=== PATIENT | male | born 1950 | race Caucasian/White ===

== ENCOUNTER 2017-04-25 13:18 | Emergency (ER) | payer MEDICARE ==
[~2017-04-25] VITALS: Ht 180.3 cm; Wt 78.8 kg
[~2017-04-25 13:18] MED LIST: TRAZ100T15 PO; ZOLP10TA PO
[2017-04-25] MEDS ORDERED: SODIUM CHLORIDE FLUSH 10ML SYR IVF ONE (14:30)
[2017-04-25] MEDS ORDERED: HYDR-3307 PO (14:31)
[2017-04-25 14:46] LABS: ASPARTATE AMINO TRANSFERASE 25 U/L (15-37); BLOOD UREA NITROGEN 22 mg/dL (7-18)
[2017-04-25] MEDS ORDERED: OMNIPAQUE 350 MG/ML, 100ML BOTTLE ONE (15:27)
[2017-04-25] MEDS ORDERED: FENTANYL PF 100 MCG/2ML ONE (16:21)
[2017-04-25] MEDS ORDERED: MIDAZOLAM 1 MG/ML, 5ML ONE (16:21)
[2017-04-25 17:39] VITALS: BP 133/87
== END 2017-04-25 17:41 | disposition home or self-care (01) ==
LOC: ED 15:53
DX: T18.5XXA Foreign body in anus and rectum, initial encounter (principal); N18.9 Chronic kidney disease, unspecified; X58.XXXA Exposure to other specified factors, initial encounter; Y93.89 Activity, other specified; Y92.89 Other specified places as the place of occurrence of the external cause; Y99.9 Unspecified external cause status
CPT/HCPCS: 36415; 45332; 74177; 80053; 85025; 85610; 85730; 99285; Q9967; J2250; J3010

== ENCOUNTER 2017-09-03 18:25 | Emergency (ER) | payer MEDICARE ==
[~2017-09-03] VITALS: Ht 180.3 cm; Wt 80.0 kg
[~2017-09-03 18:25] MED LIST changes: +HYDR-3307 PO
[2017-09-03] MEDS ORDERED: SODIUM CHLORIDE 0.9% 1,000 ML IV ONE (18:39)
[2017-09-03] MEDS ORDERED: AMPICILLIN/SULBACTAM 3 GM in SODIUM CHLORIDE 0.9% 100 ML IVPB ONE (19:00)
[2017-09-03] MEDS ORDERED: SODIUM CHLORIDE FLUSH 10ML SYR IVF ONE (19:00)
[2017-09-03 19:09] LABS: HEMATOCRIT 40.5 % (39.2-51.8); HEMOGLOBIN 13.6 g/dL (13.7-18.0)
[2017-09-03 19:20] LABS: ASPARTATE AMINO TRANSFERASE 51 U/L (15-37); BLOOD UREA NITROGEN 23 mg/dL (7-18)
[2017-09-03 20:30] VITALS: BP 134/97
== END 2017-09-03 20:32 | disposition home or self-care (01) ==
LOC: ED 20:00
DX: L03.115 Cellulitis of right lower limb (principal); F31.9 Bipolar disorder, unspecified; F43.10 Post-traumatic stress disorder, unspecified; N18.9 Chronic kidney disease, unspecified
CPT/HCPCS: 36415; 73502; 73590; 73610; 80053; 80307; 83605; 85025; 85651; 87040; 93971; 96365; 96366; 99285; J0295; J7030; G0479

== ENCOUNTER 2017-10-17 03:39 | Emergency (ER) | payer MEDICARE ==
[~2017-10-17] VITALS: Ht 170.2 cm; Wt 80.0 kg
[2017-10-17] MEDS ORDERED: GABA600T2 PO (03:53)
[2017-10-17 04:19] VITALS: BP 158/96
== END 2017-10-17 04:20 | disposition home or self-care (01) ==
LOC: ED 04:14
DX: K40.90 Unilateral inguinal hernia, without obstruction or gangrene, not specified as recurrent (principal); F31.9 Bipolar disorder, unspecified; N18.9 Chronic kidney disease, unspecified
CPT/HCPCS: 99283

== ENCOUNTER 2017-11-01 20:02 | Emergency (ER) | payer MEDICARE ==
[~2017-11-01] VITALS: Ht 180.3 cm; Wt 84.7 kg
[~2017-11-01 20:02] MED LIST changes: +GABA600T2 PO
[2017-11-01] MEDS ORDERED: SODIUM CHLORIDE FLUSH 10ML SYR IVF ONE ×2 (21:00→22:00)
[2017-11-01 21:18] LABS: HEMOGLOBIN 13.9 g/dL (13.7-18.0); WHITE BLOOD COUNT 6.8 x10^3/uL (3.4-10)
[2017-11-01 21:28] LABS: BLOOD UREA NITROGEN 26 mg/dL (7-18)
[2017-11-01] MEDS ORDERED: LISI-167 PO (21:35)
[2017-11-01 21:44] LABS: PATH.CAST-FLAG NOT PRESENT; SPERM-FLAG NOT PRESENT; SRC-FLAG NOT PRESENT; XTAL-FLAG NOT PRESENT; YLC-FLAG NOT PRESENT
[2017-11-01] MEDS ORDERED: ONDANSETRON 2MG/ML, 2ML ONE (21:44)
[2017-11-01] MEDS ORDERED: MORPHINE SULFATE 4 MG/ML, 1ML ONE (21:44)
[2017-11-01] MEDS ORDERED: MORPHINE SULFATE 4 MG/ML, 1ML IVPush PRN (22:00)
[2017-11-01] MEDS ORDERED: ONDANSETRON 2MG/ML, 2ML IVPush ONE (22:00)
[2017-11-01 23:39] VITALS: BP 161/92
== END 2017-11-02 00:06 | disposition home or self-care (01) ==
LOC: ED 20:52
DX: K40.91 Unilateral inguinal hernia, without obstruction or gangrene, recurrent (principal); N18.9 Chronic kidney disease, unspecified
CPT/HCPCS: 36415; 76857; 80048; 81001; 82040; 85025; 96374; 96375; 99285; J2405

== ENCOUNTER 2017-11-04 18:12 | Emergency (ER) | payer MEDICARE ==
[~2017-11-04] VITALS: Ht 180.3 cm; Wt 84.0 kg
[~2017-11-04 18:12] MED LIST changes: +LISI-167 PO
[2017-11-04] MEDS ORDERED: HYDROcodone/APAP 5/325 TABLET ONE (18:52)
[2017-11-04] MEDS ORDERED: HYDROcodone/APAP 5/325 TABLET PO ONE (19:00)
[2017-11-04] MEDS ORDERED: HYDROmorphone 1 MG/ML, 1ML IM ONE (19:00)
[2017-11-04 20:27] VITALS: BP 135/86
== END 2017-11-04 20:29 | disposition home or self-care (01) ==
LOC: ED 18:42
DX: K40.90 Unilateral inguinal hernia, without obstruction or gangrene, not specified as recurrent (principal); F43.10 Post-traumatic stress disorder, unspecified; N18.9 Chronic kidney disease, unspecified
CPT/HCPCS: 99283

== ENCOUNTER 2017-12-09 20:38 | Emergency (ER) | payer MEDICARE ==
[~2017-12-09] VITALS: Ht 180.3 cm; Wt 84.5 kg
[~2017-12-09 20:38] MED LIST changes: +GABA100C PO; +HYDR-882 PO; +IBUP-1223 PO
[2017-12-09 22:37] VITALS: BP 146/92
[2017-12-09 22:59] LABS: ANION GAP 9 mmol/L (5-15); CALCIUM 7.9 mg/dL (8.5-10.1); CHLORIDE 112 mmol/L (98-107)
[2017-12-09 23:01] LABS: BASOPHILS # (AUTO) 0.03 x10^3/uL (0-0.1); BASOPHILS % (AUTO) 0 % (0-1); EOSINOPHILS # (AUTO) 0.23 x10^3/uL (0-0.4); EOSINOPHILS % (AUTO) 3 % (1-7); LYMPHOCYTES # (AUTO) 2.42 x10^3/uL (1-3.4); LYMPHOCYTES % (AUTO) 28 % (22-44); MD NO; MEAN CORPUSCULAR HEMOGLOBIN 29.6 pg (27.5-34.5); MEAN CORPUSCULAR HGB CONC 33.3 g/dL (33.2-36.2); MEAN CORPUSCULAR VOLUME 88.8 fL (81-97); MONOCYTES # (AUTO) 0.74 x10^3/uL (0.2-0.8); MONOCYTES % (AUTO) 9 % (2-9); NEUTROPHILS % (AUTO) 60 % (42-75); PLATELET COUNT 240 x10^3/uL (130-400); RED BLOOD COUNT 4.47 x10^6/uL (4.38-5.82); RED CELL DISTRIBUTION WIDTH 14.2 % (9.4-14.8)
== END 2017-12-09 23:31 | disposition home or self-care (01) ==
LOC: ED 21:40
DX: R10.31 Right lower quadrant pain (principal); I12.9 Hypertensive chronic kidney disease with stage 1 through stage 4 chronic kidney disease, or unspecified chronic kidney disease; N18.9 Chronic kidney disease, unspecified; F43.10 Post-traumatic stress disorder, unspecified
CPT/HCPCS: 36415; 76857; 80048; 85025; 99285

== ENCOUNTER 2018-03-14 02:21 | Inpatient (IN) | payer MEDICARE ==
[~2018-03-14] VITALS: Ht 180.3 cm; Wt 79.6 kg
[2018-03-14] MEDS ORDERED: PIPERACILLIN/TAZO/PMX 3.375GM 50 ML IVPB ONE (02:30)
[2018-03-14] MEDS ORDERED: VANCOMYCIN PER PHARMACY IV ONE (02:30)
[2018-03-14] MEDS ORDERED: SODIUM CHLORIDE 0.9% 1,000ML IVBOLUS ONE ×2 (02:30→03:30)
[2018-03-14] MEDS ORDERED: ONDANSETRON ODT 4 MG PO ONE (02:30)
[2018-03-14] MEDS ORDERED: MORPHINE SULFATE 4 MG/ML, 1ML IVPush PRN (02:30)
[2018-03-14] MEDS ORDERED: ONDANSETRON ODT 4 MG ONE (02:54)
[2018-03-14] MEDS ORDERED: MORPHINE SULFATE 4 MG/ML, 1ML ONE (02:55)
[2018-03-14] MEDS ORDERED: PIPERACILLIN/TAZO/PMX 3.375GM 50 ML ONE (02:55)
[2018-03-14] MEDS ORDERED: VANCOMYCIN 1,200 MG in SODIUM CHLORIDE 0.9% 250 ML IV ONE (03:00)
[2018-03-14] MEDS ORDERED: ACETAMINOPHEN 500 MG TABLET ONE (03:04)
[2018-03-14 03:11] LABS: MEAN CORPUSCULAR HEMOGLOBIN 30.1 pg (27.5-34.5); MEAN CORPUSCULAR HGB CONC 33.4 g/dL (33.2-36.2); PLATELET COUNT 218 x10^3/uL (130-400); RED BLOOD COUNT 4.69 x10^6/uL (4.38-5.82); RED CELL DISTRIBUTION WIDTH 13.8 % (9.4-14.8)
[2018-03-14 03:13] LABS: ALANINE AMINOTRANSFERASE 53 U/L (12-78); ALBUMIN 3.4 g/dL (3.4-5.0); ANION GAP 11 mmol/L (5-15); CALCIUM 8.5 mg/dL (8.5-10.1); CHLORIDE 99 mmol/L (98-107); CREATININE 1.37 mg/dL (0.7-1.3)
[2018-03-14 03:16] LABS: ALKALINE PHOSPHATASE 103 U/L (45-117); BILIRUBIN,TOTAL 0.9 mg/dL (0.2-1.0); TOTAL PROTEIN 7.7 g/dL (6.4-8.2)
[2018-03-14] MEDS ORDERED: ACETAMINOPHEN 500 MG TABLET PO ONE (03:30)
[2018-03-14 03:34] LABS: MD YES
[2018-03-14 03:39] LABS: BAND#(MANUAL) 0.22 x10^3/uL; BANDS%(MANUAL) 1 % (0-7); LYMPH#(MANUAL) 0.65 x10^3/uL (1-3.4); LYMPHS% (MANUAL) 3 % (22-44); MONOS#(MANUAL) 1.73 x10^3/uL (0.3-2.7); MONOS% (MANUAL) 8 % (2-9); SEG#(MANUAL) 19.01 x10^3/uL (1.8-6.8); SEGS% (MANUAL) 88 % (42-75)
[2018-03-14 03:40] LABS: <PLATELET ESTIMATE> ADEQUATE; <RBC MORPHOLOGY> NORMAL; LARGE PLATELETS 1+
[2018-03-14] MEDS ORDERED: PROPOFOL 10 MG/ML, 20ML ONE (03:45)
[2018-03-14] MEDS ORDERED: PROPOFOL 10 MG/ML, 20ML IVPush ONE (04:00)
[2018-03-14] MEDS ORDERED: LIDOCAINE-MPF 1%, 5ML ONE (04:12)
[2018-03-14] MEDS ORDERED: LABETALOL 5MG/ML, 20ML IVPush PRN (05:00)
[2018-03-14] MEDS ORDERED: hydrALAzine 20 MG/ML, 1ML IV PRN (05:00)
[2018-03-14] MEDS ORDERED: POLYETHYLENE GLYCOL 17 GM PACKET PO PRN (05:00)
[2018-03-14] MEDS ORDERED: VANCOMYCIN PER PHARMACY MC PRN (05:00)
[2018-03-14] MEDS ORDERED: ACETAMINOPHEN 325 MG TABLET PO PRN (05:00)
[2018-03-14] MEDS ORDERED: ONDANSETRON 2MG/ML, 2ML IVPush PRN (05:00)
[2018-03-14] MEDS ORDERED: DOCUSATE 100 MG CAPSULE PO PRN (05:00)
[2018-03-14 05:30] VITALS: BP 123/76
[2018-03-14] MEDS ORDERED: PHARMACOKINETIC MONITORING MC PRN (06:00)
[2018-03-14] MEDS: SODIUM CHLORIDE 0.9% 1,000 ML IV SCH ×2 (06:07→14:37)
[2018-03-14] MEDS: ENOXAPARIN 40 MG/0.4 ML SQ SCH (06:19)
[2018-03-14] MEDS: GABAPENTIN 100 MG CAPSULE PO SCH ×4 (06:19→21:14)
[2018-03-14 07:39] VITALS: BP 108/62
[2018-03-14 07:41] VITALS: BP 118/76
[2018-03-14] MEDS: SENNA/DOCUSATE TABLET PO SCH (08:59)
[2018-03-14] MEDS: PIPERACILLIN/TAZO/PMX 3.375GM 50 ML IV SCH ×2 (08:59→15:07)
[2018-03-14] MEDS: HYDROcodone/APAP 5/325 TABLET PO PRN ×2 (09:41→13:27)
[2018-03-14 14:00] VITALS: BP 121/71
[2018-03-14] MEDS: VANCOMYCIN 1,600 MG in SODIUM CHLORIDE 0.9% 250 ML IV SCH (16:59)
[2018-03-14 20:22] VITALS: BP 135/82
[2018-03-14] MEDS: TRAZODONE 100MG TABLET PO SCH (21:13)
[2018-03-15 02:01] VITALS: BP 113/74
[2018-03-15] MEDS: PIPERACILLIN/TAZO/PMX 3.375GM 50 ML IV SCH ×4 (02:35→22:02)
[2018-03-15 05:00] LABS: BASOPHILS # (AUTO) 0.03 x10^3/uL (0-0.1); BASOPHILS % (AUTO) 0 % (0-1); EOSINOPHILS # (AUTO) 0.22 x10^3/uL (0-0.4); EOSINOPHILS % (AUTO) 2 % (1-7); LYMPHOCYTES # (AUTO) 1.69 x10^3/uL (1-3.4); LYMPHOCYTES % (AUTO) 18 % (22-44); MD NO; MEAN CORPUSCULAR HEMOGLOBIN 31.1 pg (27.5-34.5); MEAN CORPUSCULAR HGB CONC 33.8 g/dL (33.2-36.2); MEAN CORPUSCULAR VOLUME 91.9 fL (81-97); MEAN PLATELET VOLUME 8.7 fL (7.4-10.4); MONOCYTES # (AUTO) 0.84 x10^3/uL (0.2-0.8); MONOCYTES % (AUTO) 9 % (2-9); NEUTROPHILS # (AUTO) 6.74 x10^3/uL (1.8-6.8); NEUTROPHILS % (AUTO) 71 % (42-75); PLATELET COUNT 194 x10^3/uL (130-400); RED BLOOD COUNT 3.96 x10^6/uL (4.38-5.82); RED CELL DISTRIBUTION WIDTH 13.9 % (9.4-14.8)
[2018-03-15 05:03] LABS: ANION GAP 6 mmol/L (5-15); CHLORIDE 110 mmol/L (98-107); CREATININE 1.13 mg/dL (0.7-1.3)
[2018-03-15] MEDS: ENOXAPARIN 40 MG/0.4 ML SQ SCH (05:53)
[2018-03-15 07:38] VITALS: BP 110/62
[2018-03-15] MEDS: GABAPENTIN 100 MG CAPSULE PO SCH ×3 (08:48→22:07)
[2018-03-15] MEDS: SENNA/DOCUSATE TABLET PO SCH (08:49)
[2018-03-15] MEDS: HYDROcodone/APAP 5/325 TABLET PO PRN ×2 (08:55→22:07)
[2018-03-15] MEDS: VANCOMYCIN 1,600 MG in SODIUM CHLORIDE 0.9% 250 ML IV SCH (11:08)
[2018-03-15] MEDS: morphine SULFATE 10 MG/ML, 1ML IVPush PRN (12:09)
[2018-03-15 13:24] VITALS: BP 141/87
[2018-03-15 19:07] VITALS: BP 132/81
[2018-03-15] MEDS: TRAZODONE 100MG TABLET PO SCH (22:07)
[2018-03-16 00:28] VITALS: BP 130/74
[2018-03-16] MEDS: PIPERACILLIN/TAZO/PMX 3.375GM 50 ML IV SCH ×4 (04:00→23:18)
[2018-03-16] MEDS: VANCOMYCIN 1,600 MG in SODIUM CHLORIDE 0.9% 250 ML IV SCH ×2 (05:09→23:56)
[2018-03-16] MEDS: ENOXAPARIN 40 MG/0.4 ML SQ SCH (05:09)
[2018-03-16 07:19] VITALS: BP 128/75
[2018-03-16] MEDS: GABAPENTIN 100 MG CAPSULE PO SCH ×3 (11:30→20:30)
[2018-03-16] MEDS: SENNA/DOCUSATE TABLET PO SCH (11:31)
[2018-03-16 13:12] VITALS: BP 146/87
[2018-03-16] MEDS: morphine SULFATE 10 MG/ML, 1ML IVPush PRN ×2 (15:59→20:30)
[2018-03-16] MEDS: TRAZODONE 100MG TABLET PO SCH (20:30)
[2018-03-16 20:36] VITALS: BP_SYST 160; BP_SYST 167; BP_DIAS 100; BP_DIAS 93
[2018-03-16] MEDS: HYDROcodone/APAP 5/325 TABLET PO PRN (23:18)
[2018-03-17 01:45] VITALS: BP 116/67
[2018-03-17] MEDS: ENOXAPARIN 40 MG/0.4 ML SQ SCH (04:48)
[2018-03-17] MEDS: PIPERACILLIN/TAZO/PMX 3.375GM 50 ML IV SCH ×4 (04:48→22:45)
[2018-03-17 07:53] VITALS: BP 136/84
[2018-03-17] MEDS: SENNA/DOCUSATE TABLET PO SCH (09:00)
[2018-03-17] MEDS: GABAPENTIN 100 MG CAPSULE PO SCH ×3 (09:01→20:06)
[2018-03-17 13:44] VITALS: BP 154/95
[2018-03-17] MEDS: HYDROcodone/APAP 5/325 TABLET PO PRN ×2 (14:11→20:06)
[2018-03-17] MEDS: VANCOMYCIN 1,600 MG in SODIUM CHLORIDE 0.9% 250 ML IV SCH (17:09)
[2018-03-17 19:23] VITALS: BP 162/94
[2018-03-17] MEDS: TRAZODONE 100MG TABLET PO SCH (20:06)
[2018-03-18 02:30] VITALS: BP 115/77
[2018-03-18] MEDS: PIPERACILLIN/TAZO/PMX 3.375GM 50 ML IV SCH ×2 (03:55→10:46)
[2018-03-18] MEDS: ENOXAPARIN 40 MG/0.4 ML SQ SCH (05:47)
[2018-03-18 08:25] VITALS: BP 126/87
[2018-03-18] MEDS: SENNA/DOCUSATE TABLET PO SCH (09:00)
[2018-03-18] MEDS: GABAPENTIN 100 MG CAPSULE PO SCH ×3 (10:46→20:29)
[2018-03-18] MEDS: VANCOMYCIN 1,600 MG in SODIUM CHLORIDE 0.9% 250 ML IV SCH (11:28)
[2018-03-18] MEDS: HYDROcodone/APAP 5/325 TABLET PO PRN (12:30)
[2018-03-18 13:46] VITALS: BP 149/93
[2018-03-18 18:42] VITALS: BP 162/99
[2018-03-18 20:05] VITALS: BP 179/103
[2018-03-18] MEDS: AMOXICILLIN/CLAV 875-125MG TABLET PO SCH (20:29)
[2018-03-18] MEDS: TRAZODONE 100MG TABLET PO SCH (20:29)
[2018-03-18] MEDS: DOXYCYCLINE 100MG TABLET PO SCH (20:29)
[2018-03-18 21:36] VITALS: BP 137/72
[2018-03-19 02:49] VITALS: BP 126/78
[2018-03-19] MEDS: HYDROcodone/APAP 5/325 TABLET PO PRN ×2 (05:07→08:58)
[2018-03-19] MEDS: ENOXAPARIN 40 MG/0.4 ML SQ SCH (05:07)
[2018-03-19 06:09] LABS: BASOPHILS # (AUTO) 0.03 x10^3/uL (0-0.1); BASOPHILS % (AUTO) 0 % (0-1); EOSINOPHILS # (AUTO) 0.31 x10^3/uL (0-0.4); EOSINOPHILS % (AUTO) 4 % (1-7); LYMPHOCYTES # (AUTO) 2.24 x10^3/uL (1-3.4); LYMPHOCYTES % (AUTO) 26 % (22-44); MD NO; MEAN CORPUSCULAR HEMOGLOBIN 30.2 pg (27.5-34.5); MEAN CORPUSCULAR HGB CONC 33.1 g/dL (33.2-36.2); MEAN CORPUSCULAR VOLUME 91.2 fL (81-97); MEAN PLATELET VOLUME 7.6 fL (7.4-10.4); MONOCYTES # (AUTO) 0.58 x10^3/uL (0.2-0.8); MONOCYTES % (AUTO) 7 % (2-9); NEUTROPHILS # (AUTO) 5.47 x10^3/uL (1.8-6.8); NEUTROPHILS % (AUTO) 63 % (42-75); PLATELET COUNT 330 x10^3/uL (130-400); RED BLOOD COUNT 4.55 x10^6/uL (4.38-5.82); RED CELL DISTRIBUTION WIDTH 14.4 % (9.4-14.8)
[2018-03-19 06:12] LABS: CHLORIDE 110 mmol/L (98-107)
[2018-03-19 06:22] LABS: ALANINE AMINOTRANSFERASE 37 U/L (12-78); ALBUMIN 2.7 g/dL (3.4-5.0); ALKALINE PHOSPHATASE 84 U/L (45-117); ANION GAP 7 mmol/L (5-15); BILIRUBIN,TOTAL 0.4 mg/dL (0.2-1.0); CALCIUM 8.5 mg/dL (8.5-10.1); CREATININE 1.32 mg/dL (0.7-1.3)
[2018-03-19 07:45] VITALS: BP 147/85
[2018-03-19] MEDS: AMOXICILLIN/CLAV 875-125MG TABLET PO SCH (08:59)
[2018-03-19] MEDS: GABAPENTIN 100 MG CAPSULE PO SCH (08:59)
[2018-03-19] MEDS: SENNA/DOCUSATE TABLET PO SCH (09:00)
[2018-03-19] MEDS: DOXYCYCLINE 100MG TABLET PO SCH (09:01)
[2018-03-19] MEDS ORDERED: DOXY100T PO (12:31)
[2018-03-19] MEDS ORDERED: AMOX1TAB12 PO (12:31)
[2018-03-19 13:27] VITALS: BP 137/77
[2018-03-19] MEDS ORDERED: PNEUMOCOCCAL 23 VACCINE IM-VACC ONE (17:00)
== END 2018-03-19 17:52 | disposition home or self-care (01) | DRG 853 ==
LOC: ED 03:39 → EDIP 04:39 → SUATTDRO 04:53 → 3NE 05:29
PROVIDERS: ADMIT Family Medicine; ATTEND Family Medicine
PROC: 0J9H0ZZ Drainage of Left Lower Arm Subcutaneous Tissue and Fascia, Open Approach (ICD-10-PCS; principal; 2018-03-14)
PROC: 0J9G0ZZ Drainage of Right Lower Arm Subcutaneous Tissue and Fascia, Open Approach (ICD-10-PCS; 2018-03-14)
DX: A41.9 Sepsis, unspecified organism (principal); N17.0 Acute kidney failure with tubular necrosis; E87.1 Hypo-osmolality and hyponatremia; L02.413 Cutaneous abscess of right upper limb; L02.414 Cutaneous abscess of left upper limb; L03.113 Cellulitis of right upper limb; F15.10 Other stimulant abuse, uncomplicated; B19.20 Unspecified viral hepatitis C without hepatic coma; F31.9 Bipolar disorder, unspecified; F43.10 Post-traumatic stress disorder, unspecified; I12.9 Hypertensive chronic kidney disease with stage 1 through stage 4 chronic kidney disease, or unspecified chronic kidney disease; N18.9 Chronic kidney disease, unspecified; Z59.0 Homelessness; Z66 Do not resuscitate; Z86.14 Personal history of Methicillin resistant Staphylococcus aureus infection; R65.20 Severe sepsis without septic shock
CPT/HCPCS: 10060; 36415; 71046; 80048; 80053; 80202; 83605; 83735; 84145; 85025; 87040; 96361; 96374; 96375; J1650; J2543; J3370; Q0162; J2270; J7030; J7050

== ENCOUNTER 2019-01-09 01:39 | Emergency (ER) | payer MEDICARE ==
[~2019-01-09] VITALS: Ht 180.3 cm; Wt 84.0 kg
[~2019-01-09 01:39] MED LIST changes: +AMOX1TAB12 PO; +DOXY100T PO; -GABA600T2 PO; +GABA600T7 PO; +HYDR-3653 PO; -HYDR-882 PO; +TRAZ-137 PO; -TRAZ100T15 PO
[2019-01-09 01:44] VITALS: BP 170/98
[2019-01-09] MEDS ORDERED: LIDOCAINE-MPF 1%, 5ML ONE (01:58)
== END 2019-01-09 02:23 | disposition home or self-care (01) ==
LOC: ED 02:16
DX: L02.416 Cutaneous abscess of left lower limb (principal); F31.9 Bipolar disorder, unspecified; Z86.19 Personal history of other infectious and parasitic diseases
CPT/HCPCS: 10060; 99283

== ENCOUNTER 2019-02-21 11:23 | Emergency (ER) | payer MEDICARE ==
[~2019-02-21] VITALS: Ht 180.3 cm; Wt 84.9 kg
--- NOTE | 2019-02-21 11:30 | NUR ---
NIL X 1
[2019-02-21 11:34] VITALS: BP 155/97
--- NOTE | 2019-02-21 13:08 | NUR ---
PATIENT LEFT AND SIGNED FORMED. PATIENT STATED AFTER BEING TRIAGED "WELL IF I WAS GOING TO HAVE A SEIZURE I WOULD HAVE ONE ALREADY"
== END 2019-02-21 13:15 | disposition left against medical advice (07) ==
LOC: ED 11:40
DX: R56.9 Unspecified convulsions (principal); F41.9 Anxiety disorder, unspecified; Z53.21 Procedure and treatment not carried out due to patient leaving prior to being seen by health care provider

== ENCOUNTER 2019-04-09 19:27 | Day surgery (SDC) | payer MEDICARE ==
[~2019-04-09] VITALS: Ht 180.3 cm; Wt 82.4 kg
[2019-04-09] MEDS ORDERED: LEVE100020 PO (19:52)
[2019-04-09] MEDS ORDERED: HYDR10TA4 PO (19:52)
[2019-04-09] MEDS ORDERED: CYAN10005 PO (19:52)
--- NOTE | 2019-04-09 19:53 | NUR ---
PT IN HOSPITAL GOWN. PT AT XRAY AT THIS TIME. PT STATED HE HAS A FLASHLIGHT WITH A CONDOM ON IT AND A TOOTHBRUSH IN HIS RECTUM, PLACED THERE BY HIM DURING A MASTERBATION SESSION WHILE HIGH ON METH. PT STATED LAST METH USE WAS SUNDAY.
[2019-04-09] MEDS ORDERED: SODIUM CHLORIDE FLUSH 10ML SYR IVF ONE (20:00)
[2019-04-09] MEDS ORDERED: MORPHINE SULFATE 4 MG/ML, 1ML IVPush PRN (20:00)
[2019-04-09 20:22] LABS: BASOPHILS # (AUTO) 0.03 x10^3/uL (0-0.1); BASOPHILS % (AUTO) 0 % (0-1); EOSINOPHILS # (AUTO) 0.46 x10^3/uL (0-0.4); EOSINOPHILS % (AUTO) 7 % (1-7); LYMPHOCYTES # (AUTO) 1.98 x10^3/uL (1-3.4); LYMPHOCYTES % (AUTO) 30 % (22-44); MD NO; MEAN CORPUSCULAR HEMOGLOBIN 30.6 pg (27.5-34.5); MEAN CORPUSCULAR HGB CONC 32.5 g/dL (33.2-36.2); MEAN CORPUSCULAR VOLUME 94.3 fL (81-97); MEAN PLATELET VOLUME 8.6 fL (7.4-10.4); MONOCYTES % (AUTO) 11 % (2-9); NEUTROPHILS # (AUTO) 3.43 x10^3/uL (1.8-6.8); NEUTROPHILS % (AUTO) 52 % (42-75); PLATELET COUNT 177 x10^3/uL (130-400); RED BLOOD COUNT 4.47 x10^6/uL (4.38-5.82)
[2019-04-09 20:26] LABS: ALBUMIN 3.5 g/dL (3.4-5.0); ANION GAP 7 mmol/L (5-15); CALCIUM 8.5 mg/dL (8.5-10.1); CHLORIDE 108 mmol/L (98-107); CREATININE 1.64 mg/dL (0.7-1.3)
[2019-04-09 20:41] VITALS: BP 129/86
[2019-04-09] MEDS ORDERED: MORPHINE SULFATE 4 MG/ML, 1ML ONE (20:43)
--- NOTE | 2019-04-09 21:07 | NUR ---
REPORT GIVEN TO CHASE FROM OR. PT HAS IV, MEDICTAED FOR PAIN PER EMAR.
[2019-04-09] MEDS ORDERED: BUPIVACAINE/PF 0.5% ONE (21:24)
[2019-04-09] MEDS ORDERED: EPINEPHRINE 1 MG/ML, 1ML ONE (21:24)
[2019-04-09] MEDS ORDERED: SILVER SULF. CRM 1% , 25GM ONE (21:24)
[2019-04-09] MEDS ORDERED: LIDOCAINE 4% CREAM 5GM TUBE ONE (21:34)
[2019-04-09] MEDS ORDERED: MIDAZOLAM 1 MG/ML, 2ML ONE (21:40)
[2019-04-09] MEDS ORDERED: FENTANYL PF 100 MCG/2ML ONE (21:40)
[2019-04-09] MEDS ORDERED: SUCCINYLCHOLINE 20 MG/ML, 10ML ONE (21:59)
[2019-04-09] MEDS ORDERED: PROPOFOL 10 MG/ML, 20ML ONE (21:59)
[2019-04-09] MEDS ORDERED: DEXAMETHASONE 4 MG/ML, 1ML ONE ×2 (21:59)
[2019-04-09] MEDS ORDERED: ONDANSETRON 2MG/ML, 2ML ONE (21:59)
[2019-04-09] MEDS ORDERED: MEPERIDINE/PF 25MG/0.5ML IVPush PRN (22:00)
[2019-04-09] MEDS ORDERED: DIAZEPAM 5 MG/ML, 2ML IVPush PRN (22:00)
[2019-04-09] MEDS ORDERED: OXYcodone 5 MG/5 ML ORAL.SOL UDC PO PRN (22:00)
[2019-04-09] MEDS ORDERED: ONDANSETRON 2MG/ML, 2ML IV PRN (22:00)
[2019-04-09] MEDS ORDERED: HYDROmorphone 2 MG/ML, 1ML IVPush PRN (22:00)
[2019-04-09] MEDS ORDERED: PROMETHAZINE 25 MG/ML, 1ML IV PRN (22:00)
[2019-04-09] MEDS ORDERED: ACETAMINOPHEN 325 MG TABLET PO PRN (22:00)
[2019-04-09] MEDS ORDERED: FENTANYL PF 100 MCG/2ML IV PRN (22:00)
[2019-04-09] MEDS ORDERED: MIDAZOLAM 1 MG/ML, 2ML IV PRN (22:00)
[2019-04-09] MEDS ORDERED: ALBUTEROL/IPRATROPIUM 2.5MG/0.5MG, 3 ML NPPB PRN (22:00)
[2019-04-09] MEDS ORDERED: hydrALAzine 20 MG/ML, 1ML IV PRN (22:00)
[2019-04-09] MEDS ORDERED: SCOPOLAMINE PATCH, 1.5MG PATCH.TD72 TD PRN (22:00)
== END 2019-04-09 23:45 | disposition home or self-care (01) ==
LOC: ED 20:48 → UNDOADMIN 21:13 → EDIP 21:13 → OUT 21:13
PROVIDERS: ATTEND Emergency Medicine
DX: T18.5XXA Foreign body in anus and rectum, initial encounter (principal); I10 Essential (primary) hypertension; G40.909 Epilepsy, unspecified, not intractable, without status epilepticus; F43.10 Post-traumatic stress disorder, unspecified; F41.9 Anxiety disorder, unspecified; Z79.891 Long term (current) use of opiate analgesic; Z79.899 Other long term (current) drug therapy; Z88.8 Allergy status to other drugs, medicaments and biological substances; Z98.890 Other specified postprocedural states; W45.8XXA Other foreign body or object entering through skin, initial encounter; Y93.89 Activity, other specified; Y92.89 Other specified places as the place of occurrence of the external cause; Y99.8 Other external cause status
CPT/HCPCS: 36415; 45915; 74018; 80048; 82040; 85025; 88300; 93005; J0171; J0330; J1100; J2250; J2270; J2405; J2704; J3010

== ENCOUNTER 2019-04-23 12:33 | Emergency (ER) | payer MEDICARE ==
[~2019-04-23] VITALS: Ht 180.3 cm; Wt 82.1 kg
[~2019-04-23 12:33] MED LIST changes: +CYAN10005 PO; +HYDR10TA4 PO; +LEVE100020 PO
[2019-04-23 12:37] VITALS: BP 158/89
--- NOTE | 2019-04-23 13:07 | NUR ---
PT HERE FOR RESP SYMPTOMS. REPORTS CHRONIC BRONCHITIS.
--- NOTE | 2019-04-23 13:26 | NUR ---
Patient/Caregiver given discharge instructions and they have confirmed that they understand the instructions. Patient ambulatory with steady gait.
== END 2019-04-23 13:42 | disposition home or self-care (01) ==
LOC: ED 13:35
DX: J18.0 Bronchopneumonia, unspecified organism (principal)
CPT/HCPCS: 71046; 99283

== ENCOUNTER 2019-05-01 23:41 | Emergency (ER) | payer MEDICARE ==
[~2019-05-01] VITALS: Ht 180.3 cm; Wt 67.9 kg
[2019-05-01 23:45] VITALS: BP 146/93
[2019-05-02] MEDS ORDERED: IBUPROFEN 200 MG TABLET PO ONE
[2019-05-02] MEDS ORDERED: IBUPROFEN 200 MG TABLET ONE (00:15)
== END 2019-05-02 00:42 | disposition home or self-care (01) ==
LOC: ED 05-02 00:08
DX: S93.421A Sprain of deltoid ligament of right ankle, initial encounter (principal); S40.012A Contusion of left shoulder, initial encounter; I10 Essential (primary) hypertension; G40.909 Epilepsy, unspecified, not intractable, without status epilepticus; Z86.19 Personal history of other infectious and parasitic diseases; W19.XXXA Unspecified fall, initial encounter; Y93.01 Activity, walking, marching and hiking; Y92.811 Bus as the place of occurrence of the external cause; Y99.8 Other external cause status
CPT/HCPCS: 99283

== ENCOUNTER 2019-07-22 10:49 | Emergency (ER) | payer MEDICARE ==
[~2019-07-22] VITALS: Ht 180.3 cm; Wt 78.4 kg
[~2019-07-22 10:49] MED LIST changes: +CYAN-27 PO; -CYAN10005 PO; -HYDR-3307 PO; +HYDR-36 PO
--- NOTE | 2019-07-22 11:05 | NUR ---
UP ACTIVE IN THE ROOM CO HERNIA THAT HE WANTS FIXED
[2019-07-22 11:43] VITALS: BP 144/78
--- NOTE | 2019-07-22 12:13 | NUR ---
PT WAS DCD THEN REQUESTED A RX FOR PAIN MEDS WAS WRITTEN BY AZUL
== END 2019-07-22 12:30 | disposition home or self-care (01) ==
LOC: ED 12:11
DX: K40.91 Unilateral inguinal hernia, without obstruction or gangrene, recurrent (principal); Z86.19 Personal history of other infectious and parasitic diseases; F31.9 Bipolar disorder, unspecified; F43.10 Post-traumatic stress disorder, unspecified; I12.9 Hypertensive chronic kidney disease with stage 1 through stage 4 chronic kidney disease, or unspecified chronic kidney disease; N18.9 Chronic kidney disease, unspecified
CPT/HCPCS: 99281

== ENCOUNTER 2019-09-01 19:20 | Emergency (ER) | payer MEDICARE ==
[~2019-09-01] VITALS: Ht 180.3 cm; Wt 75.0 kg
[2019-09-01] MEDS ORDERED: HYDROcodone/APAP 5/325 TABLET ONE (20:28)
[2019-09-01] MEDS ORDERED: HYDROcodone/APAP 5/325 TABLET PO ONE (20:30)
[2019-09-01 20:45] LABS: MICROSCOPIC AUTO
[2019-09-01 20:52] LABS: CULTURE INDICATED? NO
[2019-09-01 22:30] VITALS: BP 126/78
== END 2019-09-01 22:33 | disposition home or self-care (01) ==
LOC: ED 21:19
DX: K40.90 Unilateral inguinal hernia, without obstruction or gangrene, not specified as recurrent (principal); I12.9 Hypertensive chronic kidney disease with stage 1 through stage 4 chronic kidney disease, or unspecified chronic kidney disease; N18.9 Chronic kidney disease, unspecified; G40.909 Epilepsy, unspecified, not intractable, without status epilepticus; F31.9 Bipolar disorder, unspecified; F43.10 Post-traumatic stress disorder, unspecified
CPT/HCPCS: 81001; 99283

== ENCOUNTER 2019-09-04 19:31 | Emergency (ER) | payer MEDICARE ==
[~2019-09-04] VITALS: Ht 180.3 cm; Wt 81.5 kg
[2019-09-04 19:45] VITALS: BP 132/76
[2019-09-04] MEDS ORDERED: IBUPROFEN 200 MG TABLET ONE (20:24)
[2019-09-04] MEDS ORDERED: IBUPROFEN 200 MG TABLET PO ONE (20:30)
--- NOTE | 2019-09-04 20:30 | NUR ---
pt refused [facility] papers, [facility]
== END 2019-09-04 20:32 | disposition home or self-care (01) ==
LOC: ED 20:10
DX: K40.90 Unilateral inguinal hernia, without obstruction or gangrene, not specified as recurrent (principal); G40.909 Epilepsy, unspecified, not intractable, without status epilepticus; F43.10 Post-traumatic stress disorder, unspecified; F31.9 Bipolar disorder, unspecified; N18.9 Chronic kidney disease, unspecified
CPT/HCPCS: 99282

== ENCOUNTER 2019-10-12 11:14 | Observation (INO) | payer MEDICARE ==
[~2019-10-12] VITALS: Ht 180.3 cm; Wt 75.7 kg
--- NOTE | 2019-10-12 11:43 | NUR ---
Pt ambulatory to ED from home. Sts has small bar of soap and electric toothbrush stuck in rectum x3 days. c/o pain 07/22. Denies bleeding. Dr. Kohler at bedside for eval.
[2019-10-12] MEDS ORDERED: HYDR-826 PO (11:50)
[2019-10-12] MEDS ORDERED: TRAZ150T62 PO (11:50)
[2019-10-12] MEDS ORDERED: MIDAZOLAM 1 MG/ML, 2ML ONE (11:51)
[2019-10-12] MEDS ORDERED: MIDAZOLAM 1 MG/ML, 2ML IVPush ONE (12:00)
[2019-10-12] MEDS ORDERED: SODIUM CHLORIDE FLUSH 10ML SYR IVF ONE (12:00)
--- NOTE | 2019-10-12 12:11 | NUR ---
versed per Dr. Rolf musa and Dr. Kohler at bedside. HR 102, [id number]
--- NOTE | 2019-10-12 12:21 | NUR ---
plan for surgery consult.
--- NOTE | 2019-10-12 12:28 | NUR ---
dr hager spoke with dr olmos.
[2019-10-12] MEDS ORDERED: SODIUM CHLORIDE 0.9% 1,000 ML IV SCH (12:33)
[2019-10-12 12:46] LABS: BASOPHILS % (AUTO) 0 % (0-1); EOSINOPHILS # (AUTO) 0.21 x10^3/uL (0-0.4); EOSINOPHILS % (AUTO) 2 % (1-7); LYMPHOCYTES # (AUTO) 0.76 x10^3/uL (1-3.4); LYMPHOCYTES % (AUTO) 6 % (22-44); MD NO; MEAN CORPUSCULAR HEMOGLOBIN 31.2 pg (27.5-34.5); MEAN CORPUSCULAR HGB CONC 33.6 g/dL (33.2-36.2); MONOCYTES # (AUTO) 0.65 x10^3/uL (0.2-0.8); MONOCYTES % (AUTO) 5 % (2-9); NEUTROPHILS # (AUTO) 11.13 x10^3/uL (1.8-6.8); NEUTROPHILS % (AUTO) 87 % (42-75); PLATELET COUNT 197 x10^3/uL (130-400); RED BLOOD COUNT 4.77 x10^6/uL (4.38-5.82); RED CELL DISTRIBUTION WIDTH 13.4 % (9.4-14.8)
--- NOTE | 2019-10-12 12:49 | NUR ---
pt requesting valuables locked up. called security to assist with this.
[2019-10-12 12:57] LABS: ALBUMIN 3.5 g/dL (3.4-5.0); ANION GAP 4 mmol/L (5-15); CALCIUM 8.6 mg/dL (8.5-10.1); CHLORIDE 107 mmol/L (98-107); CREATININE 1.24 mg/dL (0.7-1.3)
[2019-10-12] MEDS ORDERED: ENALAPRILAT 1.25 MG/ML, 2ML IVPush PRN (13:00)
--- NOTE | 2019-10-12 13:01 | NUR ---
security at bedside to take pt belongings. pt to go to surgery, pt aware. resting in bed, call mccarthy in reach.
--- NOTE | 2019-10-12 13:39 | NUR ---
Report to Annie HOLMAN.
[2019-10-12 14:00] VITALS: BP 155/104
[2019-10-12] MEDS ORDERED: MORPHINE SULFATE 4 MG/ML, 1ML IVPush PRN (14:30)
[2019-10-12] MEDS ORDERED: POTASSIUM CHLORIDE 10 MEQ in SODIUM CHLORIDE 0.9% 1,000 ML IV SCH ×2 (15:00→15:34)
[2019-10-12] MEDS ORDERED: FENTANYL PF 100 MCG/2ML ONE (17:22)
[2019-10-12] MEDS ORDERED: FENTANYL PF 100 MCG/2ML IV PRN (17:30)
[2019-10-12] MEDS ORDERED: LABETALOL 5MG/ML, 20ML IV PRN (17:30)
[2019-10-12] MEDS ORDERED: MEPERIDINE/PF 25MG/ML,1ML IVPush PRN (17:30)
[2019-10-12] MEDS ORDERED: PROMETHAZINE 25 MG/ML, 1ML IV PRN (17:30)
[2019-10-12] MEDS ORDERED: OXYcodone 5 MG/5 ML ORAL.SOL UDC PO PRN (17:30)
[2019-10-12] MEDS ORDERED: HYDROmorphone 2 MG/ML, 1ML IVPush PRN (17:30)
[2019-10-12] MEDS ORDERED: hydrALAzine 20 MG/ML, 1ML IV PRN (17:30)
[2019-10-12] MEDS ORDERED: DEXAMETHASONE 4 MG/ML, 1ML ONE (18:01)
[2019-10-12] MEDS ORDERED: PROPOFOL 10 MG/ML, 20ML ONE (18:01)
[2019-10-12] MEDS ORDERED: GLYCOPYRROLATE 0.2MG/1ML, 5ML ONE (18:01)
[2019-10-12] MEDS ORDERED: SUCCINYLCHOLINE 20 MG/ML, 10ML ONE (18:01)
[2019-10-12] MEDS ORDERED: ONDANSETRON 2MG/ML, 2ML ONE (18:01)
[2019-10-12] MEDS ORDERED: NEOSTIGMINE 1 MG/ML, 10ML ONE (18:01)
[2019-10-12] MEDS ORDERED: CEFAZOLIN 1,000 MG ONE (18:01)
[2019-10-12] MEDS ORDERED: ROCURONIUM 10MG/ML,5ML ONE (18:01)
[2019-10-12 19:00] VITALS: BP 143/76
[2019-10-12] MEDS ORDERED: ACETAMINOPHEN 325 MG TABLET PO PRN (20:00)
[2019-10-12] MEDS ORDERED: ONDANSETRON 2MG/ML, 2ML IV PRN (20:00)
[2019-10-12] MEDS ORDERED: ONDANSETRON ODT 4 MG PO PRN (20:00)
[2019-10-13] VITALS: BP 113/71
[2019-10-13 04:20] VITALS: BP 126/90
[2019-10-13 06:03] LABS: ANION GAP 6 mmol/L (5-15); CALCIUM 8.7 mg/dL (8.5-10.1); CHLORIDE 107 mmol/L (98-107); CREATININE 1.45 mg/dL (0.7-1.3)
[2019-10-13 07:28] LABS: BASOPHILS # (AUTO) 0.03 x10^3/uL (0-0.1); BASOPHILS % (AUTO) 0 % (0-1); EOSINOPHILS # (AUTO) 0.18 x10^3/uL (0-0.4); EOSINOPHILS % (AUTO) 2 % (1-7); LYMPHOCYTES # (AUTO) 1.58 x10^3/uL (1-3.4); LYMPHOCYTES % (AUTO) 13 % (22-44); MD NO; MEAN CORPUSCULAR HEMOGLOBIN 30.7 pg (27.5-34.5); MEAN CORPUSCULAR HGB CONC 32.8 g/dL (33.2-36.2); MEAN CORPUSCULAR VOLUME 93.8 fL (81-97); MEAN PLATELET VOLUME 8.4 fL (7.4-10.4); MONOCYTES # (AUTO) 1.12 x10^3/uL (0.2-0.8); MONOCYTES % (AUTO) 9 % (2-9); NEUTROPHILS # (AUTO) 9.02 x10^3/uL (1.8-6.8); NEUTROPHILS % (AUTO) 76 % (42-75); PLATELET COUNT 187 x10^3/uL (130-400); RED BLOOD COUNT 4.58 x10^6/uL (4.38-5.82); RED CELL DISTRIBUTION WIDTH 13.7 % (9.4-14.8)
[2019-10-13 08:04] VITALS: BP 139/78
[2019-10-13] MEDS ORDERED: POTASSIUM CHLORIDE 10 MEQ in SODIUM CHLORIDE 0.9% 1,000 ML IV SCH (12:33)
== END 2019-10-13 10:42 | disposition home or self-care (01) ==
LOC: ED 11:57 → EDIP 13:12 → 4NE 13:57
PROVIDERS: ADMIT Internal Medicine; ATTEND Hospitalist
DX: T18.5XXA Foreign body in anus and rectum, initial encounter (principal); F31.9 Bipolar disorder, unspecified; G40.909 Epilepsy, unspecified, not intractable, without status epilepticus; F43.10 Post-traumatic stress disorder, unspecified; F25.9 Schizoaffective disorder, unspecified; I12.9 Hypertensive chronic kidney disease with stage 1 through stage 4 chronic kidney disease, or unspecified chronic kidney disease; N18.3 Chronic kidney disease, stage 3 (moderate); E86.0 Dehydration; Z86.14 Personal history of Methicillin resistant Staphylococcus aureus infection; Z86.19 Personal history of other infectious and parasitic diseases
CPT/HCPCS: 36415; 45915; 80048; 82040; 85025; 96374; 96375; 99284; G0378; J0330; J1100; J2250; J2270; J2405; J2704; J3010; J0690; J2710

== ENCOUNTER 2019-10-21 16:31 | Emergency (ER) | payer MEDICARE ==
[~2019-10-21] VITALS: Ht 180.3 cm; Wt 79.0 kg
[~2019-10-21 16:31] MED LIST changes: +HYDR-826 PO; +TRAZ150T62 PO
--- NOTE | 2019-10-21 17:10 | NUR ---
PT STATES THAT HE HAS BEEN EXPERIENCING INCONTINENCE OF STOOL. AFTER HE HAS A BOWEL MOVEMENT, HE FEELS LIKE HE STILL HAS SOMETHING IN HIM. PT STATES HE HAD TO HAVE AN ELECTRIC TOOTH BRUSH REMOVED FROM HIS RECTUM RECENTLY. PT DENIES PLACING ANYTHING ELSE IN HIS RECTUM SINCE THEN
--- NOTE | 2019-10-21 17:45 | NUR ---
TO XRAY VIA BUDDY
[2019-10-21] MEDS ORDERED: PINK LADY ENEMA 490 ML BOTTLE PR ONE (18:30)
--- NOTE | 2019-10-21 18:30 | NUR ---
PT SLEEPING. AWAITING [facility]
--- NOTE | 2019-10-21 19:12 | NUR ---
REPORT TO YRN HOLMAN
[2019-10-21 19:16] VITALS: BP 129/71
--- NOTE | 2019-10-21 19:32 | NUR ---
PT MEDICATED PER EMAR, PT HAVING BM PRESENT.
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
--- NOTE | 2019-10-21 20:54 | NUR ---
Patient/Caregiver given discharge instructions and they have confirmed that they understand the instructions. Patient ambulatory with steady gait.
== END 2019-10-21 20:56 | disposition home or self-care (01) ==
LOC: ED 19:19
DX: K59.00 Constipation, unspecified (principal); K21.9 Gastro-esophageal reflux disease without esophagitis; I12.9 Hypertensive chronic kidney disease with stage 1 through stage 4 chronic kidney disease, or unspecified chronic kidney disease; N18.9 Chronic kidney disease, unspecified; Z88.8 Allergy status to other drugs, medicaments and biological substances
CPT/HCPCS: 74021; 99284

== ENCOUNTER 2019-10-23 13:29 | Emergency (ER) | payer MEDICARE ==
[~2019-10-23] VITALS: Ht 180.3 cm; Wt 82.4 kg
[2019-10-23 14:24] VITALS: BP 160/76
--- NOTE | 2019-10-23 17:08 | NUR ---
PRIMARY CARE NURSE PRACTITIONER: CALLED FOR ROOM, NO ANSWER
--- NOTE | 2019-10-23 17:35 | NUR ---
QUANTITATIVE ASSOCIATE: PT CALLED FOR ROOM, NO ANSWER
--- NOTE | 2019-10-23 18:19 | NUR ---
TRIBAL JUDGE: PT CALLED FOR ROOM, NO ANSWER
== END 2019-10-23 18:21 | disposition left against medical advice (07) ==
LOC: ED 18:15
DX: K59.00 Constipation, unspecified (principal); Z53.21 Procedure and treatment not carried out due to patient leaving prior to being seen by health care provider
CPT/HCPCS: 71046

== ENCOUNTER 2019-11-21 03:52 | Emergency (ER) | payer OTHER, MEDICARE ==
[~2019-11-21] VITALS: Ht 175.3 cm; Wt 85.0 kg
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
--- NOTE | 2019-11-21 04:46 | NUR ---
PT ADMITS TO HIS GF INSERTING A TOOTHBRUSH INTO HIS RECTUM. PT STATES LAST INTAKE WAS @0200 THIS AM.
[2019-11-21] MEDS ORDERED: KETAMINE 10 MG/ML, 20ML ONE (05:48)
[2019-11-21] MEDS ORDERED: PROPOFOL 10 MG/ML, 20ML ONE (05:48)
[2019-11-21] MEDS ORDERED: SODIUM CHLORIDE 0.9% 1,000ML IVBOLUS ONE (06:00)
[2019-11-21] MEDS ORDERED: KETAMINE 10 MG/ML, 20ML IV ONE (06:00)
[2019-11-21] MEDS ORDERED: PROPOFOL 10 MG/ML, 20ML IVPush ONE (06:00)
[2019-11-21 06:32] VITALS: BP 150/100
--- NOTE | 2019-11-21 07:04 | NUR ---
LATE ENTRY: PT TRANSFERED TO T3 FOR CONSCIOUS SEDATION FOR MANUAL EXTRACTION OF RECTAL FOREIGN BODY. CONSENT SIGNED. PIV PLACED. LABS DRAWN. EKG COMPLETED. BP/SPO2/ECG/ETCO2 MONITORING IN PLACE. NSR ON MONITOR. PT HYPERTENSIVE, ERP AWARE. ON 3L BY NC FOR SUPPORT FOR PROCEDURE. 0634 TIME OUT 0636 PT MEDICATED BY ERP W/ KETAMINE AND PROPOFOL FOR SEDATION WITH POSITIVE EFFECT. 0638 START OF PROCEDURE. MECHANICAL TOOTHBRUSH REMOVED FROM RECTUM WO DIFFICULTY. PT MAINTAINING AIRWAY WO ASSISTANCE THROUGHOUT. 0645 PROCEDURE END 0650 PT WITH INTERMITTENT EYE OPENING. RR WNL. PT REMAINS HYPERTENSIVE, ERP AWARE. NO ORDERS RECEIVED. BEDSIDE REPORT TO [place] TO RECOVER PATIENT.
== END 2019-11-21 07:46 | disposition home or self-care (01) ==
LOC: ED 06:03
DX: T18.5XXA Foreign body in anus and rectum, initial encounter (principal); X58.XXXA Exposure to other specified factors, initial encounter; Y93.89 Activity, other specified; Y92.89 Other specified places as the place of occurrence of the external cause; Y99.8 Other external cause status
CPT/HCPCS: 74018; 93005; 99152; 99285